=== PATIENT | male | born 1960 | race Caucasian/White ===

== ENCOUNTER 2024-07-24 19:18 | Inpatient (IN) | payer MEDICARE, OTHER ==
[~2024-07-24] VITALS: Ht 185.4 cm; Wt 61.2 kg
[2024-07-24 21:20] LABS: BASOPHILS # (AUTO) 0.1 K/uL (0.0-0.2); EOSINOPHILS # (AUTO) 0.3 K/uL (0.0-0.7); EOSINOPHILS % (AUTO) 5.6 % (0.0-6.0); HEMATOCRIT 37 % (39-51); LYMPHOCYTES # (AUTO) 2.8 K/uL (0.8-4.8); LYMPHOCYTES % (AUTO) 46.1 % (20.0-44.0); MEAN CORPUSCULAR HEMOGLOBIN 29 PG (26.0-33.0); MEAN CORPUSCULAR HGB CONC 35 g/dl (31.0-36.0); MEAN CORPUSCULAR VOLUME 84 fL (80-96); MONOCYTES # (AUTO) 0.4 K/uL (0.1-1.30); MONOCYTES % (AUTO) 7.3 % (2.0-12.0); NEUTROPHILS # (AUTO) 2.5 K/uL (1.8-8.9); PLATELET COUNT (AUTO) 156 K/uL (150-450); RED BLOOD CELL COUNT(AUTO) 4.43 MIL/uL (4.5-6.0); RED CELL DISTRIBUTION WIDTH 16.7 % (11.5-15.0); WHITE BLOOD COUNT (AUTO) 6.2 K/uL (4.3-11.0)
[2024-07-24 21:30] LABS: CARBON DIOXIDE 27 mmol/L (21-32); CHLORIDE 97 mmol/L (98-107); CREATININE 0.7 mg/dL (0.6-1.3); GLUCOSE 73 mg/dL (74-106); POTASSIUM 4.1 mmol/L (3.5-5.1); SODIUM SERUM 131 mmol/L (136-145); UREA NITROGEN, BLOOD 7 mg/dL (7-18)
[2024-07-24 21:34] LABS: BILIRUBIN,DIRECT 0.2 mg/dL (0.0-0.2); BILIRUBIN,TOTAL 0.7 mg/dL (0.2-1.0); TOTAL PROTEIN, SERUM 7.2 g/dL (6.4-8.2)
[2024-07-24] MEDS ORDERED: MORPHINE SULFATE INJ 4 MG/ML DISP.SYRIN ONE (21:43)
[2024-07-24] MEDS: ONDANSETRON HCL/PF 4 MG/2 ML VIAL IV ONE (21:49)
[2024-07-24] MEDS: MORPHINE SULFATE INJ 2 MG/ML DISP.SYRIN IV ONE (21:49)
[2024-07-24 22:30] LABS: APPEARANCE,URINE CLEAR (CLEAR); BILIRUBIN,URINE NEGATIVE (NEGATIVE); BLOOD, URINE NEGATIVE Ery/uL (NEGATIVE); COLOR,URINE YELLOW (YELLOW); KETONES,URINE NEGATIVE (NEGATIVE); LEUKOCYTE ESTERASE ,URINE NEGATIVE (NEGATIVE); NITRITE, URINE NEGATIVE (NEGATIVE); PROTEIN,URINE NEGATIVE (NEGATIVE); UGLUCOSE NEGATIVE (NEGATIVE); UROBILINOGEN,URINE 0.2 EU/dL (0.2)
[2024-07-24] MEDS ORDERED: ONDANSETRON HCL/PF 4 MG/2 ML VIAL IVP PRN (22:30)
[2024-07-24] MEDS ORDERED: MAG HYDROX/AL HYDROX/SIMETH 30 ML UDC PO PRN (22:30)
[2024-07-24] MEDS ORDERED: ACETAMINOPHEN 325 MG TABLET PO PRN (22:30)
[2024-07-24] MEDS ORDERED: Z GUARD REMEDY 4 OZ OINT TP PRN (22:30)
[2024-07-24] MEDS ORDERED: MAGNESIUM HYDROXIDE 30 ML UDC PO PRN (22:30)
[2024-07-25] VITALS (7 sets, daily range): BP systolic 112–154; BP diastolic 72–87; TEMP 97.3–98.4; O2SAT 97–98
[2024-07-25] MEDS: IV NS 0.9% 1,000 ML IV PRN (00:26)
[2024-07-25] MEDS: ENOXAPARIN SODIUM 30 MG/0.3 ML DISP.SYRIN SQ SCH (00:43)
[2024-07-25] MEDS: MORPHINE SULFATE INJ 2 MG/ML DISP.SYRIN IV PRN (00:45)
[2024-07-25 06:54] LABS: BASOPHILS % (AUTO) 0.7 % (0.0-2.0); EOSINOPHILS # (AUTO) 0.4 K/uL (0.0-0.7); EOSINOPHILS % (AUTO) 6.3 % (0.0-6.0); HEMATOCRIT 38 % (39-51); HEMOGLOBIN 13.2 g/dL (13.5-17.5); LYMPHOCYTES % (AUTO) 35.5 % (20.0-44.0); MEAN CORPUSCULAR HEMOGLOBIN 29 PG (26.0-33.0); MEAN CORPUSCULAR HGB CONC 35 g/dl (31.0-36.0); MEAN CORPUSCULAR VOLUME 83 fL (80-96); MONOCYTES # (AUTO) 0.4 K/uL (0.1-1.30); MONOCYTES % (AUTO) 6.9 % (2.0-12.0); NEUTROPHILS # (AUTO) 2.9 K/uL (1.8-8.9); NEUTROPHILS % (AUTO) 50.6 % (43.0-81.0); PLATELET COUNT (AUTO) 154 K/uL (150-450); RED BLOOD CELL COUNT(AUTO) 4.54 MIL/uL (4.5-6.0); RED CELL DISTRIBUTION WIDTH 16.6 % (11.5-15.0); WHITE BLOOD COUNT (AUTO) 5.7 K/uL (4.3-11.0)
[2024-07-25 07:06] LABS: CALCIUM, SERUM 8.8 mg/dL (8.5-10.1); CREATININE 0.6 mg/dL (0.6-1.3); MAGNESIUM 1.9 mg/dL (1.8-2.4); PHOSPHORUS 4.4 mg/dL (2.5-4.9); POTASSIUM 4.1 mmol/L (3.5-5.1)
[2024-07-25 07:21] LABS: THYROID STIMULATING HORMONE 1.59 uIU/mL (0.358-3.74)
[2024-07-25] MEDS: PANTOPRAZOLE 40 MG TABLET.DR PO SCH (07:54)
[2024-07-25] MEDS ORDERED: CYCL5TAB PO (08:55)
[2024-07-25] MEDS ORDERED: DAYQUIL PO (08:55)
[2024-07-25] MEDS ORDERED: SENN-18 PO (08:55)
[2024-07-25] MEDS ORDERED: GABA600T12 PO (08:55)
[2024-07-25] MEDS ORDERED: BISA5TAB10 PO (08:55)
[2024-07-25] MEDS ORDERED: AMLO10TA4 PO (08:55)
[2024-07-25] MEDS ORDERED: MAGN400O6 PO (08:55)
[2024-07-25] MEDS ORDERED: MIRT-91 PO (08:55)
[2024-07-25] MEDS ORDERED: [UNRECOGNIZED DRUG - OTHER] PO (08:55)
[2024-07-25] MEDS ORDERED: DULO60CA64 PO (08:55)
[2024-07-25] MEDS ORDERED: ACET-868 PO (08:55)
[2024-07-25] MEDS ORDERED: METO-357 PO (08:55)
[2024-07-25] MEDS ORDERED: OXYC20TA42 PO (08:55)
[2024-07-25] MEDS ORDERED: HYDR-4303 PO (08:55)
[2024-07-25] MEDS ORDERED: COLC0.6C3 PO (08:55)
[2024-07-25] MEDS ORDERED: POLY15DR31 EACHEYE (08:55)
[2024-07-25] MEDS: TRAMADOL HCL 50 MG TABLET PO PRN (09:40)
[2024-07-25] MEDS ORDERED: ACETAMINOPHEN 325 MG TABLET PO PRN (10:00)
[2024-07-25] MEDS ORDERED: MAGNESIUM HYDROXIDE 30 ML UDC PO PRN (10:00)
[2024-07-25] MEDS ORDERED: CYCLOBENZAPRINE 10 MG TABLET PO PRN (10:30)
[2024-07-25] MEDS: GABAPENTIN 300 MG CAPSULE PO SCH (12:28)
[2024-07-25] MEDS: oxyCODONE IR immediate release 5 MG TABLET PO PRN (15:00)
[2024-07-25] MEDS: BISACODYL (5 MG) 5 MG TABLET.DR PO SCH (16:30)
[2024-07-25] MEDS: SENNOSIDES 8.6 MG TABLET PO SCH (16:30)
[2024-07-25] MEDS: MIRTAZAPINE 15 MG TABLET PO SCH (18:30)
[2024-07-25] MEDS: HYDROCODONE/APAP 5/325MG TABLET PO PRN (21:36)
[2024-07-26] VITALS: BP 124/76; TEMP 98.1; O2SAT 97
[2024-07-26 04:00] VITALS: BP 134/90; TEMP 97.9; O2SAT 97
[2024-07-26 05:59] LABS: URINE SODIUM, RANDOM 23 mmol/l (40-220)
[2024-07-26 06:00] LABS: APPEARANCE,URINE CLEAR (CLEAR); BILIRUBIN,URINE NEGATIVE (NEGATIVE); BLOOD, URINE NEGATIVE Ery/uL (NEGATIVE); COLOR,URINE YELLOW (YELLOW); KETONES,URINE NEGATIVE (NEGATIVE); LEUKOCYTE ESTERASE ,URINE NEGATIVE (NEGATIVE); NITRITE, URINE NEGATIVE (NEGATIVE); PH,URINE 6.5 (5.0-8.0); PROTEIN,URINE NEGATIVE (NEGATIVE); UGLUCOSE NEGATIVE (NEGATIVE)
[2024-07-26 06:12] LABS: RBC,URINE 0-2 /HPF (0-2)
[2024-07-26 06:16] LABS: ADD URINE CULTURE NO; BACTERIA,URINE Few /HPF (None Seen); SQUAMOUS EPITHELIAL CELL,UR Few /HPF (None Seen); WBC,URINE 0-2 /HPF (0-3)
[2024-07-26 06:31] LABS: BASOPHILS % (AUTO) 0.6 % (0.0-2.0); EOSINOPHILS # (AUTO) 0.3 K/uL (0.0-0.7); EOSINOPHILS % (AUTO) 4.5 % (0.0-6.0); HEMATOCRIT 37 % (39-51); HEMOGLOBIN 12.9 g/dL (13.5-17.5); LYMPHOCYTES # (AUTO) 2.5 K/uL (0.8-4.8); LYMPHOCYTES % (AUTO) 37.6 % (20.0-44.0); MEAN CORPUSCULAR HEMOGLOBIN 30 PG (26.0-33.0); MEAN CORPUSCULAR HGB CONC 35 g/dl (31.0-36.0); MEAN CORPUSCULAR VOLUME 85 fL (80-96); MONOCYTES # (AUTO) 0.4 K/uL (0.1-1.30); MONOCYTES % (AUTO) 6.2 % (2.0-12.0); NEUTROPHILS # (AUTO) 3.5 K/uL (1.8-8.9); NEUTROPHILS % (AUTO) 51.1 % (43.0-81.0); PLATELET COUNT (AUTO) 125 K/uL (150-450); RED BLOOD CELL COUNT(AUTO) 4.32 MIL/uL (4.5-6.0); RED CELL DISTRIBUTION WIDTH 16.5 % (11.5-15.0); WHITE BLOOD COUNT (AUTO) 6.8 K/uL (4.3-11.0)
[2024-07-26 06:57] LABS: CALCIUM, SERUM 8.8 mg/dL (8.5-10.1); CREATININE 0.7 mg/dL (0.6-1.3); MAGNESIUM 1.8 mg/dL (1.8-2.4); PHOSPHORUS 4.3 mg/dL (2.5-4.9); POTASSIUM 4.5 mmol/L (3.5-5.1)
[2024-07-26 07:12] LABS: THYROID STIMULATING HORMONE 1.05 uIU/mL (0.358-3.74); URIC ACID 6.3 mg/dL (2.6-7.2)
[2024-07-26 08:00] VITALS: BP 106/75; TEMP 97.5; O2SAT 96
[2024-07-26] MEDS: AMLODIPINE BESYLATE 10 MG TABLET PO SCH (09:00)
[2024-07-26] MEDS: METOPROLOL SUCCINATE 50 MG TAB.SR.24H PO SCH (09:00)
[2024-07-26] MEDS: DULOXETINE HCL 30 MG CAPSULE.DR PO SCH (09:25)
[2024-07-26] MEDS: oxyCODONE IR immediate release 5 MG TABLET PO PRN (12:36)
[2024-07-26 16:00] VITALS: BP 117/77; TEMP 97.7; O2SAT 96
[2024-07-26 17:22] LABS: OSMOLALITY,URINE 116 mOS/kg (340-1090)
[2024-07-26] MEDS: ENSURE ENLIVE 237 ML LIQUID (VANILLA) PO SCH (18:05)
[2024-07-26 20:00] VITALS: BP 105/60; TEMP 97.9; O2SAT 97
[2024-07-27 08:17] VITALS: BP 126/62; TEMP 97.9; O2SAT 97
[2024-07-27] MEDS ORDERED: OXYC5CAP18 PO (10:51)
[2024-07-27] MEDS: COLCHICINE 0.6 MG TABLET PO PRN (10:54)
[2024-07-27 16:10] VITALS: BP 122/73; TEMP 97.6; O2SAT 98
== END 2024-07-27 19:30 | DRG 640 ==
LOC: ER 19:27 → TELE 23:02 → MED 07-26 21:39
PROVIDERS: ADMIT Nurse Practitioner Family; ATTEND Internal Medicine
DX: E86.0 Dehydration (principal); E43 Unspecified severe protein-calorie malnutrition; Z68.1 Body mass index [BMI] 19.9 or less, adult; R62.7 Adult failure to thrive; E87.1 Hypo-osmolality and hyponatremia; E11.649 Type 2 diabetes mellitus with hypoglycemia without coma; D64.9 Anemia, unspecified; E78.5 Hyperlipidemia, unspecified; I10 Essential (primary) hypertension; J84.10 Pulmonary fibrosis, unspecified; G89.29 Other chronic pain; M1A.9XX1 Chronic gout, unspecified, with tophus (tophi); M84.459S Pathological fracture, hip, unspecified, sequela
CPT/HCPCS: 36415; 71045-TC; 73502; 80048-TC; 80061-TC; 80076-TC; 81001; 82962-TC; 83735-TC; 83935-TC; 84100-TC; 84300-TC; 84443-TC; 84484-TC; 84550-TC; 85025-TC; 87081-TC; 97110-TC; 97116-TC; 97530-TC; 97535-TC; A4223; G0378; J1650; J2270; J2405; J7030